=== PATIENT | male | born 1975 | race Hispanic/Latino ===

== ENCOUNTER 2020-06-26 05:37 | Day surgery (SDC) | payer OTHER ==
[2020-06-22 12:42] LABS: BASOPHILS % (AUTO) 0.7 % (0.0-5.0); EOSINOPHILS % (AUTO) 2.5 % (0.0-8.0); LYMPHOCYTES % (AUTO) 25.7 % (21.0-51.0); MEAN CORPUSCULAR HEMOGLOBIN 28.6 pg (27.0-33.0); MEAN CORPUSCULAR HGB CONC 33.5 g/dL (32.0-36.0); MEAN CORPUSCULAR VOLUME 85.5 fL (79-99); MONOCYTES % (AUTO) 10.7 % (3.0-13.0); PLATELET COUNT (AUTO) 248 K/uL (130-400); RED BLOOD CELL COUNT(AUTO) 5.38 MIL/uL (4.50-6.20); RED CELL DISTRIBUTION WIDTH 12.3 % (11.0-15.5); WHITE BLOOD COUNT (AUTO) 7.2 K/uL (4.8-10.8)
[2020-06-22 12:53] LABS: INR 0.92 (0.85-1.15); PARTIAL THROMBOPLASTIN TIME 26.1 SEC (26.3-35.5)
[2020-06-22 13:00] LABS: POTASSIUM 4.2 mmol/L (3.5-5.1)
[2020-06-25 15:17] VITALS: BP 129/87
[2020-06-26] VITALS (9 sets, daily range): BP systolic 100–126; BP diastolic 72–89
[~2020-06-26] VITALS: Ht 180.3 cm; Wt 87.5 kg
[~2020-06-26 05:37] MED LIST: AEC81 PO; CETI-89 PO; LISINOPRIL PO; METF500S7 PO; ROSU40 PO
[2020-06-26] MEDS ORDERED: MIDAZOLAM HCL 1 MG/ML 2ML VIAL ONE ×3 (07:21→08:18)
[2020-06-26] MEDS ORDERED: MEPERIDINE-PF 25 MG/ML SYG ONE ×3 (07:21→08:19)
[2020-06-26] MEDS ORDERED: LIDOCAINE HCL 2% 20ML ONE (07:21)
[2020-06-26] MEDS ORDERED: SODIUM CHLORIDE 0.9% 1000ML 1,000 ML IV SCH (08:00)
== END 2020-06-26 12:09 | disposition home or self-care (01) ==
LOC: DAH 05:37
PROVIDERS: ATTEND Internal Medicine Cardiovascular Disease
DX: I49.8 Other specified cardiac arrhythmias (principal); E11.9 Type 2 diabetes mellitus without complications; E78.5 Hyperlipidemia, unspecified; Z79.82 Long term (current) use of aspirin; Z79.84 Long term (current) use of oral hypoglycemic drugs; Z79.899 Other long term (current) drug therapy; Z79.01 Long term (current) use of anticoagulants; Z86.19 Personal history of other infectious and parasitic diseases
CPT/HCPCS: 36415; 80048; 82948 ×2; 85025; 85610; 85730; 93620; A4215; A4216; A4221; A4222; A4223 ×3; A4606; A4663; C1730 ×2; C1894 ×2; J1644; J2175 ×2; J2250 ×2; J3490; J7030; 99156; 99157

== ENCOUNTER → 2020-08-01 | Outpatient (CLI) | payer OTHER | END | disposition home or self-care (01) | LOC: RAH 08:18 | PROVIDERS: ATTEND Internal Medicine Cardiovascular Disease | DX: K40.90 Unilateral inguinal hernia, without obstruction or gangrene, not specified as recurrent (principal); M79.89 Other specified soft tissue disorders; R10.31 Right lower quadrant pain; I49.8 Other specified cardiac arrhythmias | CPT/HCPCS: 76882 ==